=== PATIENT | female | born 1950 | race Caucasian/White ===

== ENCOUNTER → 2017-12-19 08:30 | Outpatient (CLI) | payer MEDICARE, OTHER ==
[2015-05-26 13:15] VITALS: BMI 33.4
[~2017-12-19 08:30] MED LIST: BAYER CHEWABLE81 MG PO; BC POWDER; CLIMARA.0375 MG/2 TD; EFFEXOR XR150 MG PO; FOSAMAX 70 MG T70 MG PO; HCTZ25 MG PO; HYDROCODONE-APA1 TAB PO; K-TAB10 MEQ PO; NEURONTIN800 MG PO; NORCO 7.5/325 T1 TA1 PO; PRILOSEC20 MG PO; ROBAXIN-750750 MG; ROBAXIN-750750 MG PO; VALIUM5 MG PO; VITAMIN B-122500 MCG; XANAX0.5 MG; XANAX1 MG PO; ZYRTEC10 MG PO
== END | disposition home or self-care (01) ==
LOC: D.RAD 08:00
DX: R13.10 Dysphagia, unspecified (principal)

== ENCOUNTER 2018-08-27 13:29 | Outpatient (CLI) | payer MEDICARE, BC ==
[~2018-08-27] VITALS: Ht 162.6 cm; Wt 83.2 kg
[2018-08-27 14:18] VITALS: BP 111/52; Ht 162.6 cm; Wt 83.2 kg
== END 2018-08-27 14:28 | disposition home or self-care (01) ==
LOC: D.OPS 13:29
PROVIDERS: ATTEND Family Medicine
DX: M81.0 Age-related osteoporosis without current pathological fracture (principal)

== ENCOUNTER 2018-08-29 19:00 | Outpatient (CLI) | payer MEDICARE, BC ==
[2018-08-27 14:18] VITALS: BMI 31.5
== END 2018-08-29 23:59 | disposition home or self-care (01) ==
LOC: D.MAMMO 19:00
PROVIDERS: ATTEND Family Medicine
DX: Z12.31 Encounter for screening mammogram for malignant neoplasm of breast (principal)

== ENCOUNTER → 2019-01-29 15:49 | Outpatient (CLI) | payer MEDICARE, BC ==
[2018-08-27 14:18] VITALS: BMI 31.5
[2019-01-31 16:08] LABS: C-TELOPEPTIDE (SERUM) 146 pg/mL (())
== END | disposition home or self-care (01) ==
LOC: D.LAB 15:49
PROVIDERS: ATTEND Dentist Oral and Maxillofacial Surgery
DX: M81.0 Age-related osteoporosis without current pathological fracture (principal)

== ENCOUNTER → 2019-12-16 17:00 | Outpatient (CLI) | payer MEDICARE, BC ==
[2018-08-27 14:18] VITALS: BMI 31.5
== END ==
LOC: D.MAMMO 10:45
PROVIDERS: ATTEND Family Medicine
DX: Z12.31 Encounter for screening mammogram for malignant neoplasm of breast (principal)

== ENCOUNTER 2019-12-31 16:30 | Outpatient (CLI) | payer MEDICARE, BC ==
[2018-08-27 14:18] VITALS: BMI 31.5
== END 2019-12-31 23:59 | disposition home or self-care (01) ==
LOC: D.MAMMO 16:30
PROVIDERS: ATTEND Family Medicine
DX: R92.0 Mammographic microcalcification found on diagnostic imaging of breast (principal)